=== PATIENT | female | born 1965 | race Caucasian/White ===

== ENCOUNTER 2017-10-03 11:53 | Emergency (ER) | payer MEDICAID ==
[~2017-10-03] VITALS: Ht 170.2 cm; Wt 73.9 kg
[2017-10-03 12:02] VITALS: BP 152/93; Ht 170.2 cm; Wt 73.9 kg
== END 2017-10-03 13:21 | disposition home or self-care (01) ==
LOC: ED 11:53
DX: M54.12 Radiculopathy, cervical region (principal); M25.512 Pain in left shoulder; M79.602 Pain in left arm